=== PATIENT | male | born 1980 | race Caucasian/White ===

== ENCOUNTER 2023-05-16 22:16 | Emergency (ER) | payer BC ==
[2023-05-16 22:21] VITALS: BP 152/94; PULSE 64; RESP 20; TEMP 98.2; BMI 26.1
[2023-05-16] MEDS ORDERED: METHOCARBAMOL 500 MG TABLET PO ONE (23:05)
[2023-05-16] MEDS ORDERED: LIDOCAINE 5% TOPICAL PATCH TP ONE (23:05)
== END 2023-05-17 00:21 | disposition home or self-care (01) ==
LOC: JER 22:16
DX: M54.50 Low back pain, unspecified (principal); S39.012A Strain of muscle, fascia and tendon of lower back, initial encounter; M54.2 Cervicalgia; G89.29 Other chronic pain; W26.8XXA Contact with other sharp object(s), not elsewhere classified, initial encounter
CPT/HCPCS: 76705-TC; 76775-TC; 99284-25